=== PATIENT | male | born 1935 | race Caucasian/White ===

== ENCOUNTER 2017-07-13 10:50 | Day surgery (SDC) | payer MEDICARE, BC ==
[2017-07-13] MEDS ORDERED: Lactated Ringers 1,000 ML IV SCH (11:00)
[2017-07-13] MEDS ORDERED: Sodium Chloride 0.9% 5 ML Syringe FLUSH PRN (11:00)
[2017-07-13] MEDS ORDERED: fentaNYL 100 MCG/2 ML SDV ONE (11:26)
[2017-07-13] MEDS ORDERED: Propofol 200 MG/20 ML SDV ONE ×2 (11:26→11:55)
[2017-07-13] MEDS ORDERED: Midazolam 1 MG/ML 2 ML SDV ONE (11:26)
[2017-07-13] MEDS ORDERED: Lactated Ringers 1,000 ML ONE (12:12)
[2017-07-13] MEDS ORDERED: fentaNYL 100 MCG/2 ML SDV IV ONE (12:24)
[2017-07-13] MEDS ORDERED: Midazolam 1 MG/ML 2 ML SDV IV ONE (12:24)
[2017-07-13] MEDS ORDERED: Propofol 200 MG/20 ML SDV IV ONE (12:24)
--- NOTE | 2017-07-13 12:31 | PCM.PN ---
- General Info Date of Service: 07/13/17 - Review of Systems Systems Review Comment:: 81-year-old male referred for EGD and colonoscopy. He has a history of unexplained weight loss. It has been almost 20 years since his last colonoscopy. He admits to occasional acid reflux symptoms but does not require any medicine for these. He is medically stable to proceed today with no significant recent change in his health status other than his weight loss. I have discussed the proposed colonoscopy and EGD with the patient. Risks such as but not limited to bleeding and GI injury reviewed. He appears to understand and agrees to proceed. - Patient Data Vitals - Most Recent: Last Vital Signs Temp 97.0 F 07/13/17 11:25 Pulse 59 L 07/13/17 11:25 Resp 16 07/13/17 11:25 BP 126/65 07/13/17 11:25 Pulse Ox 96 07/13/17 11:25 Weight - Most Recent: 59.421 kg Lab Results Last 24 Hours: Laboratory Results - last 24 hr 07/13/17 Range/Units 11:20 Potassium 3.9 D (3.3-5.3) mmol/L Med Orders - Current: Current Medications Lactated Ringer's (Ringers, Lactated) 1,000 mls @ 50 mls/hr IV ASDIRECTED DANIEL Last Admin: 07/13/17 11:18 Dose: 50 mls/hr Sodium Chloride (Syrex Flush) 5 ml FLUSH Q8HR PRN PRN Reason: Keep Vein Open Discontinued Medications Fentanyl (Sublimaze) Confirm Administered Dose 100 mcg .ROUTE .STK-MED ONE Stop: 07/13/17 11:27 Midazolam HCl (Versed 1 Mg/Ml) Confirm Administered Dose 2 mg .ROUTE .STK-MED ONE Stop: 07/13/17 11:27 Propofol (Diprivan 20 Ml) Confirm Administered Dose 200 mg .ROUTE .STK-MED ONE Stop: 07/13/17 11:27 - Problem List Review Problem List Initiated/Reviewed/Updated: Yes - My Orders Last 24 Hours: My Active Orders 07/13/17 11:00 Patient to Empty Bladder [RC] ASDIRECTED Peripheral IV Care [RC] . DIRECTED Verify Patient Consent Obtain [RC] ASDIRECTED Lactated Ringers [Ringers, Lactated] 1,000 ml IV ASDIRECTED Sodium Chloride 0.9% [Syrex Flush] 5 ml FLUSH Q8HR PRN Peripheral IV Insertion Adult [OM.PC] Routine 07/13/17 Breakfast Nothing Per Oral Diet [DIET] - Assessment Assessment:: Weight loss - Plan Plan:: EGD and colonoscopy
--- NOTE | 2017-07-13 13:24 | PCM.OPNOTE ---
- General Post-Op/Procedure Note Date of Surgery/Procedure: 07/13/17 Operative Procedure(s): EGD and Colonoscopy with Polypectomy Findings: Normal EGD Small Sigmoid Colon Polyp Mild Sigmoid Diverticulosis Pre Op Diagnosis: Weight Loss Post-Op Diagnosis: Normal Upper Endoscopy. Colon Polyp. Diverticulosis Anesthesia Technique: MAC Primary Surgeon: Rocco Gramajo Pathology: Sigmoid Colon Polyp Output, Urine Amount: 0 EBL in mLs: 0 Complications: None Condition: Good
[2017-07-13 16:49] VITALS: BP 136/68
--- NOTE | 2017-07-13 23:42 | OR ---
DATE OF SURGERY: 07/13/2017 SURGEON: Rocco Gramajo MD PREOPERATIVE DIAGNOSIS: Weight loss. POSTOPERATIVE DIAGNOSIS: Normal upper endoscopy, sigmoid colon polyp, sigmoid diverticulosis. OPERATION PERFORMED: Esophagogastroduodenoscopy and colonoscopy with polypectomy. INDICATIONS FOR SURGERY: This 81-year-old male who has had a history of recent unexplained weight loss. It has been many years since his last colonoscopy and he is referred for upper and lower endoscopy. FINDINGS: On upper endoscopy, the esophagus, stomach, and duodenum all appeared normal as examined. No visible signs of inflammation, tumors, or other abnormalities were noted. On colonoscopy, the patient had a single polyp, semi pedunculated 5 mm in size, located 15 cm from the anal verge. He also has a mild degree of sigmoid diverticulosis which does not appear to be complicated. The colon otherwise appears normal. PROCEDURE: The patient was taken to the operating room. He was given intravenous sedation, and with him in the left lateral decubitus position, the esophagus was intubated with the Olympus gastroscope. This was carefully advanced under direct visualization through the esophagus, stomach, and down into the duodenum where examination to the third portion was performed. After examining the duodenum, the scope was withdrawn back into the stomach where full examination including retroflexed examination of the fundus was performed. The GE junction and esophagus were then carefully re-examined as the scope was withdrawn. Attention was then turned to colonoscopy. Digital rectal exam was performed showing no rectal masses. The Olympus colonoscope was inserted into the rectum. Retroflexed examination of the rectal canal was performed. In the sigmoid colon, the above-described polyp was identified. It was removed with a cautery snare and retrieved into a polyp trap. The scope was then carefully advanced under direct visualization through the entire length of the colon until the cecum was reached. Cecal acquisition was confirmed by noting the normal internal cecal anatomy including the appendiceal orifice and ileocecal valve. After examining the cecum, the scope was slowly withdrawn sequentially re- examining the colonic segments until the entire colon and rectum had been fully examined. The scope was removed and the patient was taken from the operating room in satisfactory condition. ESTIMATED BLOOD LOSS: Zero. COMPLICATIONS: None. PROGNOSIS: Good. /[id number]/MODL
== END 2017-07-13 15:15 | disposition home or self-care (01) ==
LOC: KA.SDS 10:50
PROVIDERS: ATTEND Surgery
DX: R63.4 Abnormal weight loss (principal); K63.5 Polyp of colon; K57.30 Diverticulosis of large intestine without perforation or abscess without bleeding
CPT/HCPCS: 00813; 43235; 45385; 84132; J2250; J2704; J3010; J7120; 88305

== ENCOUNTER 2018-06-05 20:11 | Emergency (ER) | payer MEDICARE, BC ==
--- NOTE | 2018-06-05 20:37 | EDM.PDOC ---
ED HPI GENERAL MEDICAL PROBLEM - General Chief Complaint: General Stated Complaint: insomnia Time Seen by Provider: 06/05/18 20:27 Source of Information: Reports: Patient, Family History Limitations: Reports: No Limitations - History of Present Illness INITIAL COMMENTS - FREE TEXT/NARRATIVE: Ongoing sleep difficulty. Current medication not helping at all. 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 BPAP is working well. Increase in anxiety concerns as well as abdominal irritation from various supplements and inability to have adequate oral intake. Unable to access clinic chart. [place] [facility] no record of controlled substance. Onset: Gradual Duration: Week(s):, Getting Worse Quality: Reports: Pressure Severity: Moderate Improves with: Reports: None Associated Symptoms: Reports: No Other Symptoms - Related Data Allergies Allergy/AdvReac Type Severity Reaction Status Date / Time No Known Drug Allergies Allergy Cannot Verified 06/05/18 20:20 Remember Home Meds: Home Meds Multivitamin [Multivitamins] 1 cap PO DAILY 07/07/17 [History] Nutritional Supplement [Nutren 1.5] 250 ml PEGTUBE BID 06/05/18 [History] Past Medical History - Past Health History Medical/Surgical History: Denies Medical/Surgical History HEENT History: Reports: Cataract Cardiovascular History: Reports: High Cholesterol Other Cardiovascular History: POSSIBLE HEART MURMUR Respiratory History: Reports: Sleep Apnea, Other (See Below) (diaphragm involved with ALS) Gastrointestinal History: Reports: Other (See Below) (Feeding tube placed 31 May 2018) Other Gastrointestinal History: heart burn Musculoskeletal History: Reports: Other (See Below) (ALS) Neurological History: Reports: Other (See Below) (ALS) Psychiatric History: Reports: None Endocrine/Metabolic History: Reports: Vitamin D Deficiency Hematologic History: Reports: Iron Deficiency Oncologic (Cancer) History: Reports: Other (See Below) Other Oncologic History: Skin Other Dermatologic History: SKIN CANCER - Infectious Disease History Infectious Disease History: Reports: Chicken Pox, Measles - Past Surgical History HEENT Surgical History: Reports: Cataract Surgery GI Surgical History: Reports: Appendectomy, Hernia, Inguinal Social & Family History - Family History Family Medical History: Noncontributory - Caffeine Use Caffeine Use: Reports: Coffee - Living Situation & Occupation Living situation: Reports: Single, with Family Occupation: Employed ED ROS GENERAL - Review of Systems Review Of Systems: See Below Constitutional: Reports: No Symptoms HEENT: Reports: No Symptoms Respiratory: Reports: Other Cardiovascular: Reports: No Symptoms Endocrine: Reports: No Symptoms GI/Abdominal: Reports: Other (irritation/digestive issues secondary of feeding tube as well as lack of oral intake.) : Reports: No Symptoms Musculoskeletal: Reports: Other (general weakness) Skin: Reports: No Symptoms Neurological: Reports: Weakness Psychiatric: Reports: Anxiety Hematologic/Lymphatic: Reports: No Symptoms Immunologic: Reports: No Symptoms ED EXAM, GENERAL - Physical Exam Exam: See Below Exam Limited By: No Limitations General Appearance: Alert, WD/WN, No Apparent Distress Ears: Normal External Exam, Normal Canal, Hearing Grossly Normal, Normal TMs Ear Exam: Bilateral Ear: Auricle Normal, Canal Normal, TM normal Nose: Normal Inspection, Normal Mucosa, No Blood Throat/Mouth: Normal Inspection, Normal Lips, Normal Teeth, Normal Gums, Normal Oropharynx, Normal Voice, No Airway Compromise Head: Atraumatic, Normocephalic Neck: Normal Inspection, Supple, Non-Tender, Full Range of Motion Respiratory/Chest: No Respiratory Distress, Lungs Clear, Normal Breath Sounds Cardiovascular: Regular Rate, Rhythm, No Edema, No Gallop, No Murmur GI/Abdominal: Normal Bowel Sounds, Soft, No Distention, Other (Recently placed PEG tube) (Male) Exam: Deferred Rectal (Males) Exam: Deferred Extremities: Normal Inspection, Normal Range of Motion Neurological: Alert, Oriented, CN II-XII Intact, Normal Cognition Psychiatric: Normal Affect, Normal Mood Skin Exam: Warm, Dry, Intact Lymphatic: No Adenopathy Course - Vital Signs Last Recorded V/S: Last Vital Signs Temp 36.2 C 06/05/18 20:28 Pulse 89 06/05/18 20:28 Resp 20 06/05/18 20:28 BP 139/67 06/05/18 20:28 Pulse Ox 97 06/05/18 20:28 - Orders/Labs/Meds Meds: Medications Discontinued Medications Generic Name Dose Route Start Last Admin Trade Name Nya PRN Reason Stop Dose Admin Lorazepam 0.5 mg 06/05/18 21:13 06/05/18 21:21 Ativan PO 06/05/18 21:14 Not Given ONETIME ONE Non-Formulary Medication 1 cap 06/06/18 09:00 Multivitamin [Multivitamins] PO DAILY DANIEL Non-Formulary Medication 250 ml 06/06/18 09:00 Nutritional Supplement [Nutren 1.5] PEGTUBE BID DANIEL Departure - Departure Time of Disposition: 21:20 Disposition: Home, Self-Care 01 Condition: Good Clinical Impression: ALS (amyotrophic lateral sclerosis), Insomnia, Sleep disorder - Discharge Information *PRESCRIPTION DRUG MONITORING PROGRAM REVIEWED*: Yes *COPY OF PRESCRIPTION DRUG MONITORING REPORT IN PATIENT ANA: No Referrals: Emelia Mohan MD [Primary Care Provider] - Forms: ED Department Discharge Additional Instructions: Home and rest. Complete your night supplement feeding. Please contact Dr. Kapoor tomorrow to discuss how-if the Lorazepam was beneficial for your sleep. Continue other ordered medication and treatments as directed. Call or return if concerns. - Problem List & Annotations (1) Insomnia SNOMED Code(s): 821775523 Code(s): G47.00 - INSOMNIA, UNSPECIFIED Status: Acute Priority: Medium Current Visit: Yes (2) ALS (amyotrophic lateral sclerosis) SNOMED Code(s): 57609005 Code(s): G12.21 - AMYOTROPHIC LATERAL SCLEROSIS Status: Chronic Priority : High Current Visit: Yes (3) Sleep disorder SNOMED Code(s): 07145007 Code(s): G47.9 - SLEEP DISORDER, UNSPECIFIED Status: Chronic Priority: High Current Visit: Yes - Problem List Review Problem List Initiated/Reviewed/Updated: Yes - Assessment/Plan Plan: Home and rest. Complete your night supplement feeding. Please contact Dr. Kapoor tomorrow to discuss how-if the Lorazepam was beneficial for your sleep. Continue other ordered medication and treatments as directed. Call or return if concerns.
[2018-06-05 20:43] VITALS: BP 139/67
[2018-06-05] MEDS ORDERED: LORazepam 0.5 MG Tab PO ONE (21:13)
[2018-06-06] MEDS ORDERED: Non-Formulary Medication 1 Each (Multivitamin [Multivitamins] 1 CAP) PO SCH (09:00)
[2018-06-06] MEDS ORDERED: NUTRITIONAL SUPPLEMENT PEGTUBE SCH (09:00)
== END 2018-06-05 21:34 | disposition home or self-care (01) ==
LOC: KA.ED 20:11
DX: G12.21 Amyotrophic lateral sclerosis (principal); G47.00 Insomnia, unspecified
CPT/HCPCS: 99283; A9270-GY

== ENCOUNTER 2018-06-23 23:22 | Emergency (ER) | payer BC, MEDICARE, OTHER ==
[2018-06-23 23:33] VITALS: BP 119/59
[2018-06-23] MEDS ORDERED: Sodium Chloride 0.9% 10 ML Syringe FLUSH PRN (23:53)
[2018-06-23] MEDS ORDERED: Glucagon,Human Recombinant 1 MG Vial IVPUSH ONE (23:53)
--- NOTE | 2018-06-24 | EDM.PDOC ---
ED HPI GENERAL MEDICAL PROBLEM - General Chief Complaint: Gastrointestinal Problem Stated Complaint: Dysphagia Time Seen by Provider: 06/23/18 23:45 Source of Information: Reports: Patient History Limitations: Reports: No Limitations - History of Present Illness INITIAL COMMENTS - FREE TEXT/NARRATIVE: 82 YO WM presents to ER complaining of dysphagia x 3 hours. Pt reports history of ALS and esophageal achalasia. Pt has a G tube which he uses for the majority of his nutrition but states he eats a small mechanical soft diet as well. Pt reports tonight he ate pudding, small amount of pretzels and a tiny piece of donut which he states he chewed very well. Pt reports he has the sensation that the food is stuck. Pt reports drinking water which he feels is emptying very slowly. Pt denies nausea/vomiting. Pt able to tolerate his secretions without difficulty. Pt denies any pain at this time but has the sensation of something stuck about [facility] down. Pt denies shortness of breath, abdominal pain or constipation. Pt reports normal bowel movement today. Pt reports drinking some soda pop which he tolerated but the sensation never improved. Pt was seen by GI today who wants to do an EGD next week in [place]. Duration: Hour(s): (3) Location: Reports: Abdomen Quality: Reports: Pressure Severity: Mild Improves with: Reports: None Worsens with: Reports: None Associated Symptoms: Reports: No Other Symptoms. Denies: Chest Pain, Cough, Nausea/Vomiting - Related Data Allergies Allergy/AdvReac Type Severity Reaction Status Date / Time No Known Drug Allergies Allergy Cannot Verified 06/23/18 23:33 Remember Home Meds: Home Meds Nutritional Supplement [Nutren 1.5] 250 ml PEGTUBE ASDIRECTED 06/05/18 [History] Past Medical History - Past Health History Medical/Surgical History: Denies Medical/Surgical History HEENT History: Reports: Cataract Cardiovascular History: Reports: High Cholesterol Other Cardiovascular History: POSSIBLE HEART MURMUR Respiratory History: Reports: Sleep Apnea, Other (See Below) (diaphragm involved with ALS) Gastrointestinal History: Reports: Other (See Below) (Feeding tube placed 31 May 2018) Other Gastrointestinal History: heart burn Musculoskeletal History: Reports: Other (See Below) (ALS) Neurological History: Reports: Other (See Below) (ALS) Other Neuro History: ALS diagnosed in 03/19 Psychiatric History: Reports: None Endocrine/Metabolic History: Reports: Vitamin D Deficiency Hematologic History: Reports: Iron Deficiency Oncologic (Cancer) History: Reports: Other (See Below) Other Oncologic History: Skin Other Dermatologic History: SKIN CANCER - Infectious Disease History Infectious Disease History: Reports: Chicken Pox, Measles - Past Surgical History HEENT Surgical History: Reports: Cataract Surgery GI Surgical History: Reports: Appendectomy, Hernia, Inguinal Social & Family History - Family History Family Medical History: Noncontributory - Caffeine Use Caffeine Use: Reports: Coffee - Living Situation & Occupation Living situation: Reports: Single, with Family Occupation: Employed ED ROS GENERAL - Review of Systems Review Of Systems: See Below Constitutional: Reports: No Symptoms HEENT: Reports: No Symptoms. Denies: Throat Pain Respiratory: Reports: No Symptoms Cardiovascular: Reports: No Symptoms Endocrine: Reports: No Symptoms GI/Abdominal: Reports: Anorexia. Denies: Constipation, Decreased Appetite, Difficulty Swallowing, Nausea, Vomiting : Reports: No Symptoms Musculoskeletal: Reports: No Symptoms Skin: Reports: No Symptoms Neurological: Reports: No Symptoms Psychiatric: Reports: No Symptoms Hematologic/Lymphatic: Reports: No Symptoms Immunologic: Reports: No Symptoms ED EXAM, GI/ABD - Physical Exam Exam: See Below Exam Limited By: No Limitations General Appearance: Alert, WD/WN, No Apparent Distress Throat/Mouth: Normal Inspection, Normal Lips, Normal Teeth, Normal Gums, Normal Oropharynx, Normal Voice, No Airway Compromise Head: Atraumatic, Normocephalic Neck: Normal Inspection, Supple, Non-Tender, Full Range of Motion Respiratory/Chest: No Respiratory Distress, Lungs Clear, Normal Breath Sounds, No Accessory Muscle Use, Chest Non-Tender Cardiovascular: Normal Peripheral Pulses, Regular Rate, Rhythm, No Edema, No Gallop, No JVD, No Murmur, No Rub GI/Abdominal Exam: Normal Bowel Sounds, Soft, Non-Tender, No Organomegaly, No Distention, No Abnormal Bruit, No Mass, Pelvis Stable Extremities: Normal Inspection, Normal Range of Motion, Non-Tender, Normal Capillary Refill, No Pedal Edema Neurological: Alert, Oriented, CN II-XII Intact, Normal Cognition, Normal Gait, Normal Reflexes, No Motor/Sensory Deficits Psychiatric: Normal Affect, Normal Mood Skin Exam: Warm, Dry, Intact, Normal Color, No Rash Lymphatic: No Adenopathy EKG INTERPRETATION EKG Date: 06/24/18 Time: 00:16 Rhythm: NSR Rate (Beats/Min): 87 [place]: Normal P-Wave: Present QRS: Normal ST-T: Normal QT: Normal Comparison: NA - No Prior EKG Course - Vital Signs Last Recorded V/S: Last Vital Signs Temp 36.3 C 06/23/18 23:29 Pulse 72 06/23/18 23:29 Resp 20 06/23/18 23:29 BP 119/59 L 06/23/18 23:29 Pulse Ox 96 06/23/18 23:29 - Orders/Labs/Meds Orders: Active Orders 24 hr Category Date Time Status EKG Documentation Completion [RC] ASDIRECTED Care 06/24/18 00:24 Active Peripheral IV Care [RC] . DIRECTED Care 06/23/18 23:54 Active Chest 1V Frontal [CR] Stat Exams 06/23/18 23:53 Ordered Sodium Chloride 0.9% [Saline Flush] Med 06/23/18 23:53 Active 10 ml FLUSH Q8HR PRN Peripheral IV Insertion Adult [OM.PC] Routine Oth 06/23/18 23:53 Ordered EKG 12 Lead [EK] Routine Ther 06/24/18 00:24 Ordered Medication Orders Sodium Chloride (Saline Flush) 10 ml FLUSH Q8HR PRN PRN Reason: keep vein open Last Admin: 06/24/18 00:29 Dose: 10 ml Meds: Medications Generic Name Dose Route Start Last Admin Trade Name Freq PRN Reason Stop Dose Admin Sodium Chloride 10 ml 06/23/18 23:53 06/24/18 00:29 Saline Flush FLUSH 10 ml Q8HR PRN Administration keep vein open Discontinued Medications Generic Name Dose Route Start Last Admin Trade Name Freq PRN Reason Stop Dose Admin Glucagon 1 mg 06/23/18 23:53 06/24/18 00:26 Glucagen IVPUSH 06/23/18 23:54 Not Given ONETIME ONE Lorazepam 1 mg 06/24/18 00:24 06/24/18 00:29 Ativan IVPUSH 06/24/18 00:25 1 mg ONETIME ONE Administration - Radiology Interpretation Free Text/Narrative:: CXR- NAD - Re-Assessments/Exams Free Text/Narrative Re-Assessment/Exam: 06/24/18 00:51 symptoms resolved after ativan 1mg IV. Pt reports no discomfort and able to tolerated 8oz of water while in ER. Pt instructed to call GI for further management or return to ER for vomiting or worsening symptoms Departure - Departure Time of Disposition: 00:54 Disposition: Home, Self-Care 01 Condition: Good Clinical Impression: ALS (amyotrophic lateral sclerosis) Dysphagia Qualifiers: Dysphagia type: unspecified Qualified Code(s): R13.10 - Dysphagia, unspecified - Discharge Information Instructions: Dysphagia Eating Plan, Minced and Moist Foods, PEG Tube Home Guide, Amyotrophic Lateral Sclerosis Referrals: Emelia Mohan MD [Primary Care Provider] - Forms: ED Department Discharge - My Orders Last 24 Hours: My Active Orders 06/23/18 23:53 Chest 1V Frontal [CR] Stat Sodium Chloride 0.9% [Saline Flush] 10 ml FLUSH Q8HR PRN Peripheral IV Insertion Adult [OM.PC] Routine 06/23/18 23:54 Peripheral IV Care [RC] . DIRECTED 06/24/18 00:24 EKG Documentation Completion [RC] ASDIRECTED EKG 12 Lead [EK] Routine - Assessment/Plan Last 24 Hours: My Active Orders 06/23/18 23:53 Chest 1V Frontal [CR] Stat Sodium Chloride 0.9% [Saline Flush] 10 ml FLUSH Q8HR PRN Peripheral IV Insertion Adult [OM.PC] Routine 06/23/18 23:54 Peripheral IV Care [RC] . DIRECTED 06/24/18 00:24 EKG Documentation Completion [RC] ASDIRECTED EKG 12 Lead [EK] Routine Assessment:: 1. Dysphagia- resolved Plan: 1. discharge home 2. follow up with GI for EGD and further evaluation and treatment 3. avoid food boluses- mechanical soft's as needed 4. return to ER for vomiting or worsening symptoms
[2018-06-24] MEDS ORDERED: LORazepam 2 MG/ML SDV IVPUSH ONE (00:24)
--- NOTE | 2018-06-24 07:41 | CR ---
[id number] RAD/RAD Chest PA or AP 1V EXAM: SINGLE VIEW CHEST. INDICATION: DYSPHAGIA COMPARISON: CORRELATION IS MADE WITH THE EXAM OF JULY 17, 2016. FINDINGS: The lungs are clear but hyperaerated. The cardiomediastinal contour is stable. Consider further exams. IMPRESSION: NO OBVIOUS ACUTE ABNORMALITY SEEN ON THIS STUDY. Ike Ku MD 06/24/18 0741 Thank you for allowing us to participate in the care of your patient.
== END 2018-06-24 01:00 | disposition home or self-care (01) ==
LOC: KA.ED 23:22
DX: G12.21 Amyotrophic lateral sclerosis (principal); R13.10 Dysphagia, unspecified; E78.00 Pure hypercholesterolemia, unspecified
CPT/HCPCS: 71045; 93005; 96374; 99284; 99284-25; J2060

== ENCOUNTER 2018-08-18 14:40 | Emergency (ER) | payer OTHER ==
[2018-08-18] MEDS ORDERED: Sodium Chloride 0.9% 10 ML Syringe FLUSH PRN (15:03)
--- NOTE | 2018-08-18 15:29 | EDM.PDOC ---
ED HPI GENERAL MEDICAL PROBLEM - General Chief Complaint: Cardiovascular Problem Stated Complaint: Chest Pain Time Seen by Provider: 08/18/18 15:00 Source of Information: Reports: Patient, Family History Limitations: Reports: No Limitations - History of Present Illness INITIAL COMMENTS - FREE TEXT/NARRATIVE: 82 YO WM with PMH of ALS presents to ER with 3 episodes of chest heaviness with radiation to head causing some dizziness. Pt reports he coughs to try to clear the phlegm from his throat and develops a sensation in his chest that then causes lightheadedness. Pt reports he's had these sensations in the past but they have never been coupled together. Pt denies worsening shortness of breath, diaphoresis, or nausea/vomiting. Pt reports last episode was over 1 hour ago and states he feels fine currently. Pt denies any fever/chills, no URI symptoms and no episodes of syncope. Onset: Today Location: Reports: Chest Quality: Reports: Dull Severity: Mild Improves with: Reports: None Worsens with: Reports: None Associated Symptoms: Reports: Chest Pain. Denies: Cough, Fever/Chills, Nausea/ Vomiting, Shortness of Breath, Syncope - Related Data Allergies Allergy/AdvReac Type Severity Reaction Status Date / Time No Known Drug Allergies Allergy Cannot Verified 08/18/18 15:02 Remember Home Meds: Home Meds Nutritional Supplement [Nutren 1.5] 250 ml PEGTUBE ASDIRECTED 06/05/18 [History] LORazepam [Ativan] 0.5 - 1 mg PO BEDTIME PRN 08/18/18 [History] guaiFENesin [Mucinex] 600 mg PO BID PRN 08/18/18 [History] Past Medical History - Past Health History Medical/Surgical History: Denies Medical/Surgical History HEENT History: Reports: Cataract Cardiovascular History: Reports: High Cholesterol Other Cardiovascular History: POSSIBLE HEART MURMUR Respiratory History: Reports: Sleep Apnea, Other (See Below) (diaphragm involved with ALS) Gastrointestinal History: Reports: Other (See Below) (Feeding tube placed 31 May 2018) Other Gastrointestinal History: heart burn Musculoskeletal History: Reports: Other (See Below) (ALS) Neurological History: Reports: Other (See Below) (ALS) Other Neuro History: ALS diagnosed in 03/19 Psychiatric History: Reports: None Endocrine/Metabolic History: Reports: Vitamin D Deficiency Hematologic History: Reports: Iron Deficiency Oncologic (Cancer) History: Reports: Other (See Below) Other Oncologic History: Skin Other Dermatologic History: SKIN CANCER - Infectious Disease History Infectious Disease History: Reports: Chicken Pox, Measles - Past Surgical History HEENT Surgical History: Reports: Cataract Surgery GI Surgical History: Reports: Appendectomy, Hernia, Inguinal Social & Family History - Family History Family Medical History: Noncontributory - Caffeine Use Caffeine Use: Reports: Coffee - Living Situation & Occupation Living situation: Reports: Single, with Family Occupation: Employed ED ROS GENERAL - Review of Systems Review Of Systems: See Below Constitutional: Reports: No Symptoms HEENT: Reports: No Symptoms Respiratory: Reports: No Symptoms Cardiovascular: Reports: Chest Pain, Lightheadedness Endocrine: Reports: No Symptoms GI/Abdominal: Reports: No Symptoms : Reports: No Symptoms Musculoskeletal: Reports: No Symptoms Skin: Reports: No Symptoms Neurological: Reports: No Symptoms Psychiatric: Reports: No Symptoms Hematologic/Lymphatic: Reports: No Symptoms Immunologic: Reports: No Symptoms ED EXAM, GENERAL - Physical Exam Exam: See Below Exam Limited By: No Limitations General Appearance: Alert, WD/WN, No Apparent Distress Eye Exam: Bilateral Eye: PERRL Throat/Mouth: Normal Inspection, Normal Lips, Normal Teeth, Normal Gums, Normal Oropharynx, Normal Voice, No Airway Compromise Head: Atraumatic, Normocephalic Neck: Normal Inspection, Supple, Non-Tender, Full Range of Motion Respiratory/Chest: No Respiratory Distress, Lungs Clear, Normal Breath Sounds, No Accessory Muscle Use, Chest Non-Tender Cardiovascular: Normal Peripheral Pulses, Regular Rate, Rhythm, No Edema, No Gallop, No JVD, No Murmur, No Rub GI/Abdominal: Normal Bowel Sounds, Soft, Non-Tender, No Organomegaly, No Distention, No Abnormal Bruit, No Mass Back Exam: Normal Inspection, Full Range of Motion, NT Extremities: Normal Inspection, Normal Range of Motion, Non-Tender, Normal Capillary Refill, No Pedal Edema Neurological: Alert, Oriented, CN II-XII Intact, Normal Cognition, Normal Reflexes Psychiatric: Normal Affect, Normal Mood Skin Exam: Warm, Dry, Intact, Normal Color, No Rash Lymphatic: No Adenopathy EKG INTERPRETATION EKG Date: 08/18/18 Time: 14:54 Rhythm: NSR Rate (Beats/Min): 76 [place]: Normal P-Wave: Present QRS: Normal ST-T: Normal QT: Normal Comparison: No Change (06/24/2018) Course - Vital Signs Last Recorded V/S: Last Vital Signs Temp 36.4 C 08/18/18 14:50 Pulse 87 08/18/18 14:50 Resp 18 08/18/18 14:50 BP 120/59 L 08/18/18 14:50 Pulse Ox 98 08/18/18 14:50 - Orders/Labs/Meds Orders: Active Orders 24 hr Category Date Time Status EKG Documentation Completion [RC] ASDIRECTED Care 08/18/18 15:03 Active Peripheral IV Care [RC] . DIRECTED Care 08/18/18 15:03 Active CXR [Chest 2V] [CR] Stat Exams 08/18/18 15:03 Ordered Sodium Chloride 0.9% [Saline Flush] Med 08/18/18 15:03 Active 10 ml FLUSH Q8HR PRN Peripheral IV Insertion Adult [OM.PC] Routine Oth 08/18/18 15:03 Ordered EKG 12 Lead [EK] Routine Ther 08/18/18 15:03 Ordered Medication Orders Sodium Chloride (Saline Flush) 10 ml FLUSH Q8HR PRN PRN Reason: keep vein open Last Admin: 08/18/18 15:00 Dose: 10 ml Labs: Laboratory Tests 08/18/18 08/18/18 08/18/18 Range/Units 15:25 15:25 15:25 WBC 6.68 (5.00-10.00) 10^3/uL RBC 5.55 (4.50-6.00) 10^6/uL Hgb 17.2 H (13.0-17.0) g/dL Hct 48.5 (40.0-52.0) % MCV 87.4 (82.0-92.0) fL MCH 31.0 (27.0-31.0) pg MCHC 35.5 (32.0-36.0) g/dL RDW 11.4 L (11.5-14.5) % Plt Count 289 (150-400) 10^3/uL MPV 8.9 (7.4-10.4) fL Immature Gran % (Auto) 0.1 (0.0-5.0) % Neut % (Auto) 78.2 H (50.0-70.0) % Lymph % (Auto) 9.0 L (20.0-40.0) % [place] % (Auto) 10.8 H (2.0-8.0) % Eos % (Auto) 1.6 (1.0-3.0) % Baso % (Auto) 0.3 (0.0-1.0) % Immature Gran # (Auto) 0.01 (0.00-0.50) 10^3/uL Neut # (Auto) 5.22 (2.50-7.00) 10^3/uL Lymph # (Auto) 0.60 L (1.00-4.00) 10^3/uL [place] # (Auto) 0.72 (0.10-0.80) 10^3/uL Eos # (Auto) 0.11 (0.10-0.30) 10^3/uL Baso # (Auto) 0.02 (0.00-0.10) 10^3/uL PT 9.5 (8.9-11.4) SEC INR 0.9 (0.9-1.1) APTT 24.7 (23.1-31.3) SEC Sodium 132 L (136-145) mmol/L Potassium 4.8 (3.3-5.3) mmol/L Chloride 96 L (98-115) mmol/L Carbon Dioxide 33.5 H (21.0-32.0) mmol/L Anion Gap 7.3 (5-15) mmol/L BUN 15 (6-25) mg/dL Creatinine 0.49 L (0.51-1.17) mg/dL Est Cr Clr Drug Dosing 92.57 mL/min Estimated GFR (MDRD) > 60 mL/min Glucose 86 (75 - 99) mg/dL Calcium 9.1 (8.7-10.3) mg/dL Total Bilirubin 0.5 (0.2-1.0) mg/dL AST 33 (15-37) U/L ALT 43 (12-78) U/L Alkaline Phosphatase 71 (46-116) IU/L Creatine Kinase 226 (26-276) U/L CK-MB (CK-2) 9.80 H* (0.00-4.30) ng/mL Troponin I < 0.04 (0.00-0.070) ng/mL Total Protein 6.9 (6.4-8.2) g/dL Albumin 3.67 (3.00-4.80) g/dL Meds: Medications Generic Name Dose Route Start Last Admin Trade Name Nya PRN Reason Stop Dose Admin Sodium Chloride 10 ml 08/18/18 15:03 08/18/18 15:00 Saline Flush FLUSH 10 ml Q8HR PRN Administration keep vein open - Radiology Interpretation Free Text/Narrative:: CXR-NAD Departure - Departure Time of Disposition: 16:23 Disposition: Home, Self-Care 01 Condition: Fair Clinical Impression: Nonspecific chest pain Instructions: Nonspecific Chest Pain, Aspirin and Your Heart Referrals: Emelia Mohan MD [Primary Care Provider] - Forms: ED Department Discharge - My Orders Last 24 Hours: My Active Orders 08/18/18 15:03 EKG Documentation Completion [RC] ASDIRECTED Peripheral IV Care [RC] . DIRECTED CXR [Chest 2V] [CR] Stat Sodium Chloride 0.9% [Saline Flush] 10 ml FLUSH Q8HR PRN Peripheral IV Insertion Adult [OM.PC] Routine EKG 12 Lead [EK] Routine - Assessment/Plan Last 24 Hours: My Active Orders 08/18/18 15:03 EKG Documentation Completion [RC] ASDIRECTED Peripheral IV Care [RC] . DIRECTED CXR [Chest 2V] [CR] Stat Sodium Chloride 0.9% [Saline Flush] 10 ml FLUSH Q8HR PRN Peripheral IV Insertion Adult [OM.PC] Routine EKG 12 Lead [EK] Routine Assessment:: 1. nonspecific chest pain 2. elevated CKMB Plan: 1. Discharge home- Discussed abnormal findings with patient and his . Pt is a DNR but not currently on hospice. Pt reports he doesn't want anything done at this time and will return to ER for worsening symptoms. Pt was instructed if he develops any more episodes overnight to follow up in clinic in am for serial trop I. 2. ASA 325mg PO QD 3. return to ER for worsening symptoms 4. follow up in clinic in am for repeat trop I
[2018-08-18 15:47] VITALS: BP 120/59
[2018-08-18 15:59] LABS: ANION GAP 7.3 mmol/L (5-15); CHLORIDE,CL 96 mmol/L (98-115); SODIUM,NA 132 mmol/L (136-145)
[2018-08-18] MEDS ORDERED: Aspirin 81 MG Tab.Chew PO ONE (16:22)
--- NOTE | 2018-08-18 16:44 | CR ---
[id number] RAD/RAD Chest PA And Lateral EXAM: FRONTAL AND LATERAL CHEST INDICATION: Chest pain. COMPARISON: June 23, 2018. DISCUSSION: The lungs are borderline hyperinflated with mild scarring in the left lung base. No definite acute infiltrates. Normal heart size. Feeding tube. IMPRESSION: 1. No acute findings. Srinivas Jenkins MD 08/18/18 1537 Thank you for allowing us to participate in the care of your patient.
== END 2018-08-18 16:45 | disposition home or self-care (01) ==
LOC: KA.ED 14:40
DX: R07.9 Chest pain, unspecified (principal); R74.8 Abnormal levels of other serum enzymes; E78.00 Pure hypercholesterolemia, unspecified; Z79.899 Other long term (current) drug therapy
CPT/HCPCS: 71046; 80053; 82550; 82553; 84484; 85025; 85610; 85730; 93005; 99284; 99285-25; A9270-GY

== ENCOUNTER 2018-10-28 14:50 | Emergency (ER) | payer OTHER ==
[2018-10-28] MEDS ORDERED: Albuterol/Ipratropium 3.0-0.5 MG/3 ML Neb Soln NEB ONE (14:58)
[2018-10-28] MEDS ORDERED: Albuterol/Ipratropium 3.0-0.5 MG/3 ML Neb Soln ONE (14:59)
[2018-10-28] MEDS ORDERED: LORazepam 0.5 MG Tab PO ONE (15:32)
--- NOTE | 2018-10-28 15:47 | EDM.PDOC ---
ED HPI GENERAL MEDICAL PROBLEM - General Chief Complaint: Respiratory Problem Stated Complaint: CAN'T CATCH HIS BREATH Time Seen by Provider: 10/28/18 14:50 Source of Information: Reports: Patient, Family ( and two daughters) History Limitations: Reports: No Limitations - History of Present Illness INITIAL COMMENTS - FREE TEXT/NARRATIVE: Patient presents with respiratory distress. This started a couple hours ago. He feels like he can't cough up phlegm in his throat. Pt has ALS diagnosed in March. At baseline he has some distress but says this is the worst it has been. Sats are 98% on RA but he is breathing fast and shallow. - Related Data Allergies Allergy/AdvReac Type Severity Reaction Status Date / Time No Known Drug Allergies Allergy Cannot Verified 10/28/18 14:56 Remember Home Meds: Home Meds Nutritional Supplement [Nutren 1.5] 250 ml PEGTUBE ASDIRECTED 06/05/18 [History] LORazepam [Ativan] 0.5 - 1 mg PO BEDTIME PRN 08/18/18 [History] guaiFENesin [Mucinex] 600 mg PO BID PRN 08/18/18 [History] Sodium Chloride for Inhalation [Sodium Chloride] 4 ml INH BID 10/28/18 [History] Past Medical History - Past Health History Medical/Surgical History: Denies Medical/Surgical History HEENT History: Reports: Cataract Cardiovascular History: Reports: High Cholesterol Other Cardiovascular History: POSSIBLE HEART MURMUR Respiratory History: Reports: Sleep Apnea, Other (See Below) Gastrointestinal History: Reports: Other (See Below) Other Gastrointestinal History: heart burn Musculoskeletal History: Reports: Other (See Below) Other Musculoskeletal History: ALS Neurological History: Reports: Other (See Below) Other Neuro History: ALS diagnosed in 03/19 Psychiatric History: Reports: None Endocrine/Metabolic History: Reports: Vitamin D Deficiency Hematologic History: Reports: Iron Deficiency Oncologic (Cancer) History: Reports: Other (See Below) Other Oncologic History: Skin Other Dermatologic History: SKIN CANCER - Infectious Disease History Infectious Disease History: Reports: Chicken Pox, Measles - Past Surgical History Head Surgeries/Procedures: Reports: None HEENT Surgical History: Reports: Cataract Surgery GI Surgical History: Reports: Appendectomy, Hernia, Inguinal Social & Family History - Family History Family Medical History: Noncontributory - Caffeine Use Caffeine Use: Reports: Coffee - Living Situation & Occupation Living situation: Reports: Single, with Family Occupation: Employed ED ROS GENERAL - Review of Systems Review Of Systems: See Below Constitutional: Denies: Fever, Chills HEENT: Reports: No Symptoms Respiratory: Reports: Shortness of Breath, Cough Cardiovascular: Denies: Chest Pain, Lightheadedness, Syncope Endocrine: Reports: No Symptoms GI/Abdominal: Denies: Abdominal Pain, Vomiting : Denies: Dysuria, Flank Pain Musculoskeletal: Reports: No Symptoms Skin: Denies: Cyanosis, Jaundice, Mottled, Pallor, Diaphoresis Neurological: Reports: Difficulty Walking (easily tires). Denies: Confusion, Dizziness, Headache, Seizure, Syncope, Trouble Speaking Psychiatric: Reports: Anxiety. Denies: Agitation ED EXAM, GENERAL - Physical Exam Exam: See Below Exam Limited By: No Limitations General Appearance: Alert, WD/WN, Moderate Distress (respiratory) Eye Exam: Bilateral Eye: EOMI, Normal Inspection, PERRL Ears: Normal External Exam, Hearing Grossly Normal Nose: Normal Inspection, No Blood Throat/Mouth: Normal Inspection, Normal Lips, Normal Voice, No Airway Compromise Head: Atraumatic, Normocephalic Neck: Normal Inspection, Non-Tender Respiratory/Chest: Lungs Clear, Respiratory Distress, Decreased Breath Sounds, Accessory Muscle Use. No: Crackles, Rales, Rhonchi, Wheezing, Stridor Cardiovascular: Regular Rate, Rhythm, No Murmur Extremities: Normal Inspection, Non-Tender, Normal Capillary Refill Neurological: Alert, Oriented, Normal Cognition, No Motor/Sensory Deficits Psychiatric: Normal Affect, Anxious Skin Exam: Warm, Dry, Intact, Normal Color, No Rash Course - Vital Signs Last Recorded V/S: Last Vital Signs Temp 98.1 F 10/28/18 17:03 Pulse 87 10/28/18 17:03 Resp 27 H 10/28/18 17:03 BP 156/61 H 10/28/18 17:03 Pulse Ox 95 10/28/18 17:03 - Orders/Labs/Meds Orders: Active Orders 24 hr Category Date Time Status Peripheral IV Care [RC] . DIRECTED Care 10/28/18 17:03 Active RT Aerosol Therapy [RC] ASDIRECTED Care 10/28/18 14:58 Active Sodium Chloride 0.9% [Saline Flush] Med 10/28/18 17:03 Active 10 ml FLUSH Q8HR PRN Peripheral IV Insertion Adult [OM.PC] Routine Oth 10/28/18 17:03 Ordered Medication Orders Sodium Chloride (Saline Flush) 10 ml FLUSH Q8HR PRN PRN Reason: keep vein open Labs: Laboratory Tests 10/28/18 10/28/18 10/28/18 Range/Units 16:35 16:35 16:35 WBC 4.54 L (5.00-10.00) 10^3/uL RBC 4.83 (4.50-6.00) 10^6/uL Hgb 15.5 D (13.0-17.0) g/dL Hct 43.4 (40.0-52.0) % MCV 89.9 (82.0-92.0) fL MCH 32.1 H (27.0-31.0) pg MCHC 35.7 (32.0-36.0) g/dL RDW 11.2 L (11.5-14.5) % Plt Count 263 (150-400) 10^3/uL MPV 9.3 (7.4-10.4) fL Immature Gran % (Auto) 0.0 (0.0-5.0) % Neut % (Auto) 70.6 H (50.0-70.0) % Lymph % (Auto) 15.0 L (20.0-40.0) % [place] % (Auto) 10.4 H (2.0-8.0) % Eos % (Auto) 3.3 H (1.0-3.0) % Baso % (Auto) 0.7 (0.0-1.0) % Immature Gran # (Auto) 0.00 (0.00-0.50) 10^3/uL Neut # (Auto) 3.21 (2.50-7.00) 10^3/uL Lymph # (Auto) 0.68 L (1.00-4.00) 10^3/uL [place] # (Auto) 0.47 (0.10-0.80) 10^3/uL Eos # (Auto) 0.15 (0.10-0.30) 10^3/uL Baso # (Auto) 0.03 (0.00-0.10) 10^3/uL ABG pH (7.35-7.45) ABG pCO2 (35-45) mmHG ABG pO2 (80-105) mmHG ABG HCO3 (22-26) mmol/L ABG Total CO2 (23-27) mmol/L ABG O2 Saturation (95-98) % ABG Base Excess (-2-3) mmol/L O2 Delivery Device Sodium 133 L (136-145) mmol/L Potassium 4.3 (3.3-5.3) mmol/L Chloride 95 L (98-115) mmol/L Carbon Dioxide 31.2 (21.0-32.0) mmol/L Anion Gap 11.1 (5-15) mmol/L BUN 13 (6-25) mg/dL Creatinine 0.39 L (0.51-1.17) mg/dL Est Cr Clr Drug Dosing 112.46 mL/min Estimated GFR (MDRD) > 60 mL/min Glucose 90 (75 - 99) mg/dL Lactic Acid 1.3 (0.4-2.0) mmol/L Calcium 9.3 (8.7-10.3) mg/dL 10/28/18 Range/Units 16:55 WBC (5.00-10.00) 10^3/uL RBC (4.50-6.00) 10^6/uL Hgb (13.0-17.0) g/dL Hct (40.0-52.0) % MCV (82.0-92.0) fL MCH (27.0-31.0) pg MCHC (32.0-36.0) g/dL RDW (11.5-14.5) % Plt Count (150-400) 10^3/uL MPV (7.4-10.4) fL Immature Gran % (Auto) (0.0-5.0) % Neut % (Auto) (50.0-70.0) % Lymph % (Auto) (20.0-40.0) % [place] % (Auto) (2.0-8.0) % Eos % (Auto) (1.0-3.0) % Baso % (Auto) (0.0-1.0) % Immature Gran # (Auto) (0.00-0.50) 10^3/uL Neut # (Auto) (2.50-7.00) 10^3/uL Lymph # (Auto) (1.00-4.00) 10^3/uL [place] # (Auto) (0.10-0.80) 10^3/uL Eos # (Auto) (0.10-0.30) 10^3/uL Baso # (Auto) (0.00-0.10) 10^3/uL ABG pH 7.41 (7.35-7.45) ABG pCO2 48 H (35-45) mmHG ABG pO2 71 L (80-105) mmHG ABG HCO3 30.2 H (22-26) mmol/L ABG Total CO2 32 H (23-27) mmol/L ABG O2 Saturation 94 L (95-98) % ABG Base Excess 5 H (-2-3) mmol/L O2 Delivery Device Room air Sodium (136-145) mmol/L Potassium (3.3-5.3) mmol/L Chloride (98-115) mmol/L Carbon Dioxide (21.0-32.0) mmol/L Anion Gap (5-15) mmol/L BUN (6-25) mg/dL Creatinine (0.51-1.17) mg/dL Est Cr Clr Drug Dosing mL/min Estimated GFR (MDRD) mL/min Glucose (75 - 99) mg/dL Lactic Acid (0.4-2.0) mmol/L Calcium (8.7-10.3) mg/dL Meds: Medications Generic Name Dose Route Start Last Admin Trade Name Freq PRN Reason Stop Dose Admin Sodium Chloride 10 ml 10/28/18 17:03 Saline Flush FLUSH Q8HR PRN keep vein open Discontinued Medications Generic Name Dose Route Start Last Admin Trade Name Freq PRN Reason Stop Dose Admin Albuterol/Ipratropium 3 ml 10/28/18 14:58 10/28/18 15:01 Duoneb 3.0-0.5 Mg/3 Ml NEB 10/28/18 14:59 3 ml ONETIME ONE Administration Albuterol/Ipratropium Confirm 10/28/18 14:59 10/28/18 15:05 Duoneb 3.0-0.5 Mg/3 Ml Administered 10/28/18 15:00 Not Given Dose 3 ml .ROUTE .STK-MED ONE Lorazepam 0.5 mg 10/28/18 15:32 10/28/18 15:35 Ativan PO 10/28/18 15:33 0.5 mg ONETIME ONE Administration - Re-Assessments/Exams Free Text/Narrative Re-Assessment/Exam: 10/28/18 16:53 DuoNeb didn't immediately provide noticeable improvement but after 0.5 mg Lorazepam also, he did improve moderately. I discussed with his PCP, Dr. Torey mckenna, to determine more baseline status and long-term plan. Discussed with patient and family that the best options for managing this would involve transferring up to [place]. They agree with this as his ALS doctor, Josh is there at [facility]. I discussed case with Dr. Ramirez IM and Dr. Mercado ER who accepted for transfer to ER. DNR status is being discussed with family. [facility] he doesn' t want life support but initially thinks that if he needed intubation en route to [place] he would want that. 10/28/18 17:05 CXR is clear. After discussing code status with patient and family, patient decided he would not want to be intubated at all. He is looking much more comfortable right now and is stable at departure. Departure - Departure Time of Disposition: 17:08 Disposition: DC/Tfer to Acute Hospital 02 Condition: Fair Clinical Impression: ALS (amyotrophic lateral sclerosis), Respiratory distress - Discharge Information Referrals: Emelia Mohan MD [Primary Care Provider] - Forms: ED Department Discharge - My Orders Last 24 Hours: My Active Orders 10/28/18 14:58 RT Aerosol Therapy [RC] ASDIRECTED 10/28/18 17:03 Peripheral IV Care [RC] . DIRECTED Sodium Chloride 0.9% [Saline Flush] 10 ml FLUSH Q8HR PRN Peripheral IV Insertion Adult [OM.PC] Routine - Assessment/Plan Last 24 Hours: My Active Orders 10/28/18 14:58 RT Aerosol Therapy [RC] ASDIRECTED 10/28/18 17:03 Peripheral IV Care [RC] . DIRECTED Sodium Chloride 0.9% [Saline Flush] 10 ml FLUSH Q8HR PRN Peripheral IV Insertion Adult [OM.PC] Routine
--- NOTE | 2018-10-28 16:59 | CR ---
[id number] RAD/RAD Chest PA or AP 1V EXAM: RAD Chest PA or AP 1V INDICATION: DYSPNEA. COMPARISON: August 18, 2018. DISCUSSION: Cardiomediastinal silhouette is normal in size and contour. No infiltrate, effusion, pneumothorax, or edema. IMPRESSION: No acute cardiopulmonary abnormality. Ramon Wu DO 10/28/18 1658 Thank you for allowing us to participate in the care of your patient.
[2018-10-28 17:02] LABS: O2 DELIVERY DEVICE ROOM AIR; O2 SATURATION ARTERIAL 94 % (95-98); PCO2 ARTERIAL 48 mmHG (35-45); PO2 ARTERIAL 71 mmHG (80-105)
[2018-10-28 17:03] LABS: BASE EXCESS ARTERIAL 5 mmol/L (-2-3); BICARBONATE,ARTERIAL 30.2 mmol/L (22-26)
[2018-10-28] MEDS ORDERED: Sodium Chloride 0.9% 10 ML Syringe FLUSH PRN (17:03)
[2018-10-28 17:23] LABS: ANION GAP 11.1 mmol/L (5-15); CHLORIDE,CL 95 mmol/L (98-115); SODIUM,NA 133 mmol/L (136-145)
[2018-10-28 18:09] VITALS: BP 154/61
== END 2018-10-28 17:25 ==
LOC: KA.ED 14:50
DX: G12.21 Amyotrophic lateral sclerosis (principal); R06.03 Acute respiratory distress; E78.00 Pure hypercholesterolemia, unspecified; Z79.899 Other long term (current) drug therapy; Z85.828 Personal history of other malignant neoplasm of skin
CPT/HCPCS: 36600; 71045; 80048; 82803; 83605; 85025; 94640; 99285-25; A9270-GY; J7620-GY

== ENCOUNTER 2018-11-15 20:30 | Emergency (ER) | payer BC, MEDICARE, OTHER ==
[2018-11-15] MEDS ORDERED: Albuterol/Ipratropium 3.0-0.5 MG/3 ML Neb Soln ONE (20:52)
[2018-11-15] MEDS ORDERED: Albuterol/Ipratropium 3.0-0.5 MG/3 ML Neb Soln NEB ONE (21:19)
[2018-11-15 21:32] VITALS: BP 127/83; PULSE 75
--- NOTE | 2018-11-15 22:04 | EDM.PDOC ---
ED HPI GENERAL MEDICAL PROBLEM - General Stated Complaint: BREATHING DIFFICULTY Time Seen by Provider: 11/15/18 21:04 Source of Information: Reports: Patient, Family (, daughter and granddaughter) History Limitations: Reports: No Limitations - History of Present Illness INITIAL COMMENTS - FREE TEXT/NARRATIVE: Patient presents with a feeling of shortness of breath that is mostly with exhaling. 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 He uses BiPap at night along with Lorazepam to help him sleep. He has a DuoNeb but doesn't use it anymore than absolutely necessary because it dries out his throat. He does have saline to humidify it. He hasn't used the neb in last two days. Two and a half weeks ago he was here in ER with dyspnea (worse than today) and we transferred him to [place] where he was kept for a day or two. They felt he was a little congested and gave him a dose of prednisone and one dose to take at home. Today he doesn't feel like he has the congestion like he did. He has an appointment in 2 days ( ) with his ALS team in [place] for routine evaluation and disease management. 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 (see below) Other Treatments CAGE/VAULT SUPERVISOR: BiPAP - Related Data Allergies Allergy/AdvReac Type Severity Reaction Status Date / Time No Known Drug Allergies Allergy Cannot Verified 10/28/18 14:56 Remember Home Meds: Home Meds Nutritional Supplement [Nutren 1.5] 250 ml PEGTUBE ASDIRECTED 06/05/18 [History] LORazepam [Ativan] 0.5 - 1 mg PO BEDTIME PRN 08/18/18 [History] guaiFENesin [Mucinex] 600 mg PO BID PRN 08/18/18 [History] Sodium Chloride for Inhalation [Sodium Chloride] 4 ml INH BID 10/28/18 [History] Past Medical History - Past Health History Medical/Surgical History: Denies Medical/Surgical History HEENT History: Reports: Cataract Cardiovascular History: Reports: High Cholesterol Other Cardiovascular History: POSSIBLE HEART MURMUR Respiratory History: Reports: Sleep Apnea, Other (See Below) Gastrointestinal History: Reports: Other (See Below) Other Gastrointestinal History: heart burn Musculoskeletal History: Reports: Other (See Below) Other Musculoskeletal History: ALS Neurological History: Reports: Other (See Below) Other Neuro History: ALS diagnosed in 03/19 Psychiatric History: Reports: None Endocrine/Metabolic History: Reports: Vitamin D Deficiency Hematologic History: Reports: Iron Deficiency Oncologic (Cancer) History: Reports: Other (See Below) Other Oncologic History: Skin Other Dermatologic History: SKIN CANCER - Infectious Disease History Infectious Disease History: Reports: Chicken Pox, Measles - Past Surgical History Head Surgeries/Procedures: Reports: None HEENT Surgical History: Reports: Cataract Surgery GI Surgical History: Reports: Appendectomy, Hernia, Inguinal Social & Family History - Family History Family Medical History: Noncontributory - Caffeine Use Caffeine Use: Reports: Coffee - Living Situation & Occupation Living situation: Reports: Single, with Family Occupation: Employed ED ROS GENERAL - Review of Systems Review Of Systems: See Below Constitutional: Reports: Diaphoresis (he gets a little sweaty every evening for at least the last two months for no apparent reason). Denies: Fever, Chills, Malaise, Weakness HEENT: Denies: Ear Pain, Throat Pain, Throat Swelling, Vision Change Respiratory: Reports: Shortness of Breath. Denies: Wheezing, Pleuritic Chest Pain, Cough, Sputum, Hemoptysis Cardiovascular: Denies: Chest Pain, Lightheadedness, Syncope Endocrine: Reports: No Symptoms GI/Abdominal: Reports: Constipation. Denies: Abdominal Pain, Diarrhea, Nausea, Vomiting : Denies: Dysuria, Flank Pain Musculoskeletal: Denies: Neck Pain, Shoulder Pain, Arm Pain, Back Pain, Hand Pain, Leg Pain, Foot Pain Skin: Denies: Cyanosis, Jaundice, Mottled, Pallor, Diaphoresis Neurological: Denies: Confusion, Dizziness, Seizure, Syncope, Trouble Speaking Psychiatric: Denies: Agitation, Anxiety, Confusion ED EXAM, GENERAL - Physical Exam Exam: See Below Exam Limited By: No Limitations General Appearance: Alert, WD/WN, No Apparent Distress Eye Exam: Bilateral Eye: EOMI, Normal Inspection, PERRL Ears: Normal External Exam, Hearing Grossly Normal Nose: Normal Inspection, No Blood Throat/Mouth: Normal Inspection, Normal Lips, Normal Voice, No Airway Compromise Head: Atraumatic, Normocephalic Neck: Normal Inspection, Supple, Non-Tender, Full Range of Motion Respiratory/Chest: Lungs Clear, Accessory Muscle Use (he uses his shoulders and upper chest to help move air in and out in shallow respirations). No: Crackles , Rales, Rhonchi, Wheezing, Stridor Cardiovascular: Normal Peripheral Pulses, Regular Rate, Rhythm, No Edema, No Murmur GI/Abdominal: Normal Bowel Sounds, Soft, Non-Tender, No Organomegaly, No Distention Back Exam: Normal Inspection, Full Range of Motion. No: CVA Tenderness (L), CVA Tenderness (R) Extremities: Normal Inspection, Normal Range of Motion, Non-Tender, Normal Capillary Refill Neurological: Alert, Oriented, Normal Cognition, No Motor/Sensory Deficits Psychiatric: Normal Affect, Normal Mood Skin Exam: Warm, Dry, Intact, Normal Color, No Rash Course - Vital Signs Last Recorded V/S: Last Vital Signs Temp 98.0 F 11/15/18 20:45 Pulse 75 11/15/18 21:31 Resp 20 11/15/18 21:31 BP 127/83 11/15/18 21:31 Pulse Ox 97 11/15/18 21:31 - Orders/Labs/Meds Orders: Active Orders 24 hr Category Date Time Status RT Aerosol Therapy [RC] ASDIRECTED Care 11/15/18 21:20 Active Meds: Medications Discontinued Medications Generic Name Dose Route Start Last Admin Trade Name Nya PRN Reason Stop Dose Admin Albuterol/Ipratropium Confirm 11/15/18 20:52 11/15/18 21:20 Duoneb 3.0-0.5 Mg/3 Ml Administered 11/15/18 20:53 3 ml Dose Administration 3 ml .ROUTE .STK-MED ONE Albuterol/Ipratropium 3 ml 11/15/18 21:19 11/15/18 21:20 Duoneb 3.0-0.5 Mg/3 Ml NEB 11/15/18 21:20 3 ml ONETIME ONE Administration - Re-Assessments/Exams Free Text/Narrative Re-Assessment/Exam: 11/15/18 22:31 I recommended a DuoNeb but he declined. He definitely doesn't appear to be in as much respiratory distress as when I saw him 2 weeks ago. I reviewed UpToDate for any treatment options we could try but nothing aside from invasive vs noninvasive mechanical ventilation. We discussed some things to discuss with ALS team on . He says when he was in [place] two weeks ago they checked his CO2 and were somewhat surprised to find it normal. We discussed findings and recommendations and patient is feeling a little better at discharge and appears stable. Departure - Departure Time of Disposition: 21:51 Disposition: Home, Self-Care 01 Condition: Fair Clinical Impression: ALS (amyotrophic lateral sclerosis) Dyspnea Qualifiers: Dyspnea type: shortness of breath Qualified Code(s): R06.02 - Shortness of breath; R06.00 - Dyspnea, unspecified; R06.01 - Orthopnea - Discharge Information Referrals: Emelia Mohan MD [Primary Care Provider] - Additional Instructions: 1. Continue your current regimen of BiPap and nebs. 2. See your ALS team in [place] on the as planned. 3. Return to ER as needed. - My Orders Last 24 Hours: My Active Orders 11/15/18 21:20 RT Aerosol Therapy [RC] ASDIRECTED - Assessment/Plan Last 24 Hours: My Active Orders 11/15/18 21:20 RT Aerosol Therapy [RC] ASDIRECTED
== END 2018-11-15 22:00 | disposition home or self-care (01) ==
LOC: KA.ED 20:30
DX: R06.02 Shortness of breath (principal); G12.21 Amyotrophic lateral sclerosis; Z79.899 Other long term (current) drug therapy
CPT/HCPCS: 99284; J7620-GY

== ENCOUNTER 2018-11-19 21:13 | Emergency (ER) | payer OTHER ==
[2018-11-19 21:42] VITALS: BP 108/70; PULSE 82
--- NOTE | 2018-11-19 21:44 | EDM.PDOC ---
ED HPI GENERAL MEDICAL PROBLEM - General Chief Complaint: Respiratory Problem Stated Complaint: SHORTNESS OF BREATH Time Seen by Provider: 11/19/18 21:34 Source of Information: Reports: Patient, Family - History of Present Illness INITIAL COMMENTS - FREE TEXT/NARRATIVE: Experience an event of shortness of breath doing well at home this evening, this led to increased anxiety. Event was similar to those in the past at which time he used 0.5 lorazepam but did not feel it became beneficial and with discussion with his and granddaughter decided to pursue presentation to the emergency department. King states that in route here the lorazepam started kicking and then he had thoughts of turning around and going back home. Family members felt he should seek evaluation and they present to the emergency department for that. Saturations are good he is in no respiratory distress and is feeling much better upon initial assessment please see vitals. Onset: Today, Sudden Duration: Minutes:, Constant, Improving, Resolved Prior to Arrival Quality: Reports: Pressure, Same as Previous Episode Severity: Moderate Improves with: Reports: Medication Worsens with: Reports: Other Context: Reports: Activity Associated Symptoms: Reports: No Other Symptoms - Related Data Allergies Allergy/AdvReac Type Severity Reaction Status Date / Time No Known Drug Allergies Allergy Unknown Cannot Verified 11/19/18 21:31 Remember Home Meds: Home Meds Nutritional Supplement [Nutren 1.5] 250 ml PEGTUBE ASDIRECTED 06/05/18 [History] LORazepam [Ativan] 0.5 - 1 mg PO BEDTIME PRN 08/18/18 [History] guaiFENesin [Mucinex] 600 mg PO BID PRN 08/18/18 [History] Sodium Chloride for Inhalation [Sodium Chloride] 4 ml INH BID 10/28/18 [History] Past Medical History - Past Health History Medical/Surgical History: Denies Medical/Surgical History HEENT History: Reports: Cataract Cardiovascular History: Reports: High Cholesterol Other Cardiovascular History: POSSIBLE HEART MURMUR Respiratory History: Reports: Sleep Apnea, Other (See Below) (ALS) Gastrointestinal History: Reports: Other (See Below) Other Gastrointestinal History: heart burn Musculoskeletal History: Reports: Other (See Below) Other Musculoskeletal History: ALS Neurological History: Reports: Other (See Below) Other Neuro History: ALS diagnosed in 03/19 Psychiatric History: Reports: None Endocrine/Metabolic History: Reports: Vitamin D Deficiency Hematologic History: Reports: Iron Deficiency Oncologic (Cancer) History: Reports: Other (See Below) Other Oncologic History: Skin Other Dermatologic History: SKIN CANCER - Infectious Disease History Infectious Disease History: Reports: Chicken Pox, Measles - Past Surgical History Head Surgeries/Procedures: Reports: None HEENT Surgical History: Reports: Cataract Surgery GI Surgical History: Reports: Appendectomy, Hernia, Inguinal Social & Family History - Family History Family Medical History: Noncontributory - Caffeine Use Caffeine Use: Reports: Coffee - Living Situation & Occupation Living situation: Reports: Single, with Family Occupation: Employed ED ROS GENERAL - Review of Systems Review Of Systems: See Below Constitutional: Reports: No Symptoms HEENT: Reports: No Symptoms Respiratory: Reports: Shortness of Breath Cardiovascular: Reports: No Symptoms Endocrine: Reports: No Symptoms GI/Abdominal: Reports: No Symptoms : Reports: No Symptoms Musculoskeletal: Reports: Other (ALS) Skin: Reports: No Symptoms Neurological: Reports: No Symptoms Psychiatric: Reports: No Symptoms Hematologic/Lymphatic: Reports: No Symptoms Immunologic: Reports: No Symptoms ED EXAM, GENERAL - Physical Exam Exam: See Below Free Text/Narrative:: Time of my arrival in the emergency department and feels that the situation has stabilized in the event has resolved. He declines any further testing or evaluation and we have a pleasant conversation discussing aspects of treatment and the scheduled delivery for acetylcysteine/Mucomyst to see if it will help with his significant secretions in the throat and upper bronchial. We do discuss "Xopenex" pounds it does not seem to cause same amount of tachycardia and anxiety prone as albuterol. He did meet with the ALS team last week with a decision for acetylcysteine was made at that time. Exam Limited By: No Limitations General Appearance: Alert, WD/WN, No Apparent Distress Ears: Normal External Exam, Normal Canal, Hearing Grossly Normal, Normal TMs Nose: Normal Inspection, Normal Mucosa Throat/Mouth: Normal Inspection, Normal Lips, Normal Oropharynx Head: Atraumatic, Normocephalic Neck: Normal Inspection, Supple, Non-Tender, Full Range of Motion Respiratory/Chest: No Respiratory Distress, Lungs Clear, Normal Breath Sounds Cardiovascular: Normal Peripheral Pulses, Regular Rate, Rhythm, No Edema, No Murmur GI/Abdominal: Normal Bowel Sounds, Soft, Non-Tender, No Organomegaly, No Distention, No Abnormal Bruit, No Mass (Male) Exam: Deferred Rectal (Males) Exam: Deferred Neurological: Alert, Oriented, CN II-XII Intact, Normal Cognition, Normal Gait, Normal Reflexes, No Motor/Sensory Deficits Psychiatric: Normal Affect, Normal Mood Skin Exam: Warm, Dry, Intact, Normal Color Lymphatic: No Adenopathy Departure - Departure Time of Disposition: 22:02 Disposition: Home, Self-Care 01 Condition: Fair Clinical Impression: ALS (amyotrophic lateral sclerosis), Anxiety about health - Discharge Information *PRESCRIPTION DRUG MONITORING PROGRAM REVIEWED*: Not Applicable *COPY OF PRESCRIPTION DRUG MONITORING REPORT IN PATIENT ANA: Not Applicable Referrals: Emelia Mohan MD [Primary Care Provider] - Forms: ED Department Discharge Additional Instructions: Continue your medications as directed. Do not hesitate to present to the emergency department if you feel the Ativan is not appropriately controlling the anxiousness associated with your shortness of breath/ALS. Continue your exercise plan trying not to exceed the daily goal. - Problem List & Annotations (1) Anxiety about health SNOMED Code(s): 382366122 Code(s): F41.8 - OTHER SPECIFIED ANXIETY DISORDERS Status: Acute Priority : High Current Visit: Yes (2) ALS (amyotrophic lateral sclerosis) SNOMED Code(s): 75888889 Code(s): G12.21 - AMYOTROPHIC LATERAL SCLEROSIS Status: Chronic Priority : High Current Visit: No - Problem List Review Problem List Initiated/Reviewed/Updated: Yes - Assessment/Plan Plan: Continue your medications as directed. Do not hesitate to present to the emergency department if you feel the Ativan is not appropriately controlling the anxiousness associated with your shortness of breath/ALS. Continue your exercise plan trying not to exceed the daily goal.
== END 2018-11-19 22:10 | disposition home or self-care (01) ==
LOC: KA.ED 21:13
DX: G12.21 Amyotrophic lateral sclerosis (principal); F41.9 Anxiety disorder, unspecified
CPT/HCPCS: 99284